=== PATIENT | male | born 1960 | race Caucasian/White ===

== ENCOUNTER 2020-12-06 10:16 | Outpatient (CLI) | payer BC, SELFPAY ==
[~2020-12-06] VITALS: Ht 185.4 cm; Wt 90.7 kg
[2020-12-08] MEDS ORDERED: CEFAZOLIN SOD 2 GM in D5W 50 ML IV ONE (07:00)
== END 2020-12-06 12:16 | disposition home or self-care (01) ==
LOC: SLB 10:16 → EDSTATUS 12-08 10:00
PROVIDERS: ATTEND Surgery
DX: A63.0 Anogenital (venereal) warts (principal); Z01.818 Encounter for other preprocedural examination; Z20.822 Contact with and (suspected) exposure to COVID-19; Z53.8 Procedure and treatment not carried out for other reasons
CPT/HCPCS: 36415; J0690; J7060

== ENCOUNTER 2021-01-05 09:13 | Day surgery (SDC) | payer BC, SELFPAY ==
[~2021-01-05] VITALS: Ht 185.4 cm; Wt 90.7 kg
[~2021-01-05 09:13] MED LIST: CEFAZOLIN 2 GM IVPB PREMIX 50 ML IV ONE
[2021-01-05] MEDS ORDERED: WATER FOR IRRIGATION,STERILE 1,000 ML IRRIG.SOLN IR ONE (11:44)
[2021-01-05] MEDS ORDERED: LR 1,000 ML IV.SOLN IV ONE (11:44)
[2021-01-05] MEDS ORDERED: HYDROmorphone 2 MG/ML VIAL IVP ONE (11:44)
[2021-01-05] MEDS ORDERED: GLYCOPYRROLATE 0.2 MG/ML VIAL IJ ONE (11:44)
[2021-01-05] MEDS ORDERED: PHENYLEPHRINE HCL 10 MG/ML VIAL (NEOSYNEPHRINE) IV ONE (11:44)
[2021-01-05] MEDS ORDERED: PROPOFOL 200MG/ 20ML VIAL (DIPRIVAN) IV ONE (11:44)
[2021-01-05] MEDS ORDERED: SEVOFLURANE 15 MIN GAS INH ONE (11:44)
[2021-01-05] MEDS ORDERED: ePHEDrine sulfate 50 MG/ML VIAL IVP ONE (11:44)
[2021-01-05] MEDS ORDERED: MORPHINE 4 MG INJ. 4 MG/ML VIAL IVP PRN ×2 (13:00)
[2021-01-05] MEDS ORDERED: ONDANSETRON HCL 4 MG/2 ML VIAL IVP PRN (13:00)
[2021-01-05 14:44] VITALS: BP_SYST 124
== END 2021-01-05 14:00 | disposition home or self-care (01) ==
LOC: SDS 09:13 → SMU 09:15 → SDS 14:00
PROVIDERS: ATTEND Surgery
DX: A63.0 Anogenital (venereal) warts (principal); I10 Essential (primary) hypertension; J44.9 Chronic obstructive pulmonary disease, unspecified; Z79.899 Other long term (current) drug therapy
CPT/HCPCS: 11422; 36415; 87426; 88305; 88341; 88342; 88361; J0690; J1170; J2370; J2704; J3490; J7120

== ENCOUNTER 2021-03-27 09:22 | Day surgery (SDC) | payer BC, SELFPAY ==
[~2021-03-27] VITALS: Ht 185.4 cm; Wt 90.7 kg
[2021-03-27] MEDS ORDERED: CEFAZOLIN 2 GM IVPB PREMIX 50 ML IV ONE (10:00)
[2021-03-27] MEDS ORDERED: ePHEDrine sulfate 50 MG/ML VIAL IVP ONE (10:30)
[2021-03-27] MEDS ORDERED: MIDAZOLAM HCL 5 MG/5 ML VIAL IVP ONE (10:30)
[2021-03-27] MEDS ORDERED: fentaNYL CITRATE 250 MCG/5 ML AMP IV ONE (10:30)
[2021-03-27] MEDS ORDERED: DEXAMETHASONE SOD PHOSPHATE 4 MG/ML VIAL IVP ONE (10:30)
[2021-03-27] MEDS ORDERED: PROPOFOL 200MG/ 20ML VIAL (DIPRIVAN) IV ONE (10:30)
[2021-03-27] MEDS ORDERED: SEVOFLURANE 15 MIN GAS INH ONE (10:30)
[2021-03-27] MEDS ORDERED: BUPIVACAINE /PF 0.25% 30 ML VIAL INJ ONE (10:30)
[2021-03-27] MEDS ORDERED: NS IRRIG SOLN 1000 ML IR ONE (10:30)
[2021-03-27] MEDS ORDERED: LR 1,000 ML IV.SOLN IV ONE (10:30)
[2021-03-27] MEDS ORDERED: ONDANSETRON HCL 4 MG/2 ML VIAL IVP ONE (10:30)
[2021-03-27] MEDS ORDERED: KETOROLAC TROMETHAMINE 30 MG VIAL IVP PRN (11:00)
[2021-03-27] MEDS ORDERED: HYDROmorphone 1 MG/ML INJ. CARTRIDGE IVP PRN ×2 (11:00)
[2021-03-27] MEDS ORDERED: ONDANSETRON HCL 4 MG/2 ML VIAL IVP PRN (11:00)
[2021-03-27] MEDS ORDERED: ACETAMINOPHEN 650 MG/20.3 ML UDC PO PRN (12:00)
[2021-03-27] MEDS ORDERED: ACETAMINOPHEN 325 MG TABLET PO PRN (12:00)
[2021-03-27 12:57] VITALS: BP_SYST 148
== END 2021-03-27 13:55 | disposition home or self-care (01) ==
LOC: SDS 09:22 → SMU 09:23 → SDS 13:55
PROVIDERS: ATTEND Surgery
DX: A63.0 Anogenital (venereal) warts (principal); N48.89 Other specified disorders of penis; J44.9 Chronic obstructive pulmonary disease, unspecified; I10 Essential (primary) hypertension; Z20.822 Contact with and (suspected) exposure to COVID-19; Z79.899 Other long term (current) drug therapy
CPT/HCPCS: 36415; 54055; 54060; 87426; 88305; J0690; J1100; J2250; J2405; J2704; J3010; J3490; J7120; U0003